=== PATIENT | male | born 2000 | race Caucasian/White ===

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

== ENCOUNTER 2019-03-10 12:35 | Emergency (ER) | payer SELFPAY ==
[~2019-03-10] VITALS: Ht 177.8 cm; Wt 70.0 kg
[~2019-03-10 12:35] MED LIST changes: +PRILOSEC20 MG/CAP PO; +PROTONIX40 MG PO; +REGLAN10 MG PO
[2019-03-10] MEDS ORDERED: FLEXERIL PO (13:27)
[2019-03-10] MEDS ORDERED: ULTRAM50 M1 PO (13:27)
[2019-03-10 13:41] VITALS: BP 149/92
== END 2019-03-10 13:49 | disposition home or self-care (01) | DRG 563 ==
LOC: ED 12:35
DX: S39.011A Strain of muscle, fascia and tendon of abdomen, initial encounter (principal); X50.0XXA Overexertion from strenuous movement or load, initial encounter

== ENCOUNTER 2019-04-24 08:07 | Observation (INO) | payer SELFPAY ==
[~2019-04-24] VITALS: Ht 177.8 cm; Wt 70.5 kg
[~2019-04-24 08:07] MED LIST changes: +FLEXERIL PO
--- NOTE | 2019-04-24 08:12 | NUR ---
PATIENT AMBULATES TO ROOM ROOM WITH STEADY GAIT.
[2019-04-24 08:33] LABS: HEMOGLOBIN 16.3 g/dl (14.0-18.0); IMMATURE GRANULOCYTES 0.4 % (0.0-5.0); MEAN CELL VOLUME 90.1 fL CALC (80.0-100.0); MEAN CORPUSCULAR HGB 30.6 pG CALC (26.0-32.0); NEUT# 13.05 thou/uL (1.82-7.42); RED BLOOD COUNT 5.33 mill/uL (4.70-6.10); RED CELL DISTRI WIDTH 11.9 % (11.5-15.5)
[2019-04-24 08:51] LABS: ALBUMIN 5.3 g/dL (3.2-5.0); ALKALINE PHOSPHATASE 68 u/l (38-126); ANION GAP 16 (6-22 (CALC)); BILIRUBIN, TOTAL 0.8 mg/dL (0.0-1.4); BUN 10 mg/dL (8-21); BUN/CREATININE RATIO 11 (12-20 (CALC)); CARBON DIOXIDE 24 mmol/l (22-30); CHLORIDE 106 mmol/l (95-108); CREATININE 0.9 mg/dL (0.7-1.3); ETHYL ALCOHOL 0 mg/dl (0-30); GFR > 60 ML/MIN (>=60 (CALC)); GFR FOR AFR.AMER. > 60 ML/MIN (>=60 (CALC)); LIPASE 81 u/l (23-300); POTASSIUM 3.9 mmol/l (3.5-5.1); SODIUM 143 mmol/l (137-146); TOTAL PROTEIN 8.1 g/dL (6.3-8.2)
[2019-04-24 08:52] LABS: SGOT/AST 23 u/l (17-59)
--- NOTE | 2019-04-24 09:08 | NUR ---
PT TO RADIOLOGY VIA . TRANSFERS SELF. IV SITE HEALTHY. PT APPEARS COMFORTABLE.
--- NOTE | 2019-04-24 09:23 | NUR ---
PT RETURNED FROM RADIOLOGY NO APPARENT DISTRESS. IV FLUIDS CONTINUE. VSS.
[2019-04-24 09:30] LABS: URINE BILIRUBIN - DIPSTICK NEGATIVE (NEGATIVE); URINE BLOOD DIPSTICK NEGATIVE (NEGATIVE); URINE COLOR YELLOW; URINE GLUCOSE - DIPSTICK NEGATIVE (NEGATIVE); URINE KETONE NEGATIVE (NEGATIVE); URINE LEUK ESTERASE NEGATIVE (NEGATIVE); URINE NITRITE - DIPSTICK NEGATIVE (Negative); URINE PROTEIN - DIPSTICK NEGATIVE (NEG-TRACE); URINE UROBILINOGEN - DIPSTICK 0.2 E.U./dL (0.2)
[2019-04-24 09:31] LABS: COCAINE NEGATIVE (NEGATIVE)
[2019-04-24 09:32] LABS: BARBITURATES NEGATIVE (NEGATIVE); METHADONE NEGATIVE (NEGATIVE); OXCYCODONE NEGATIVE (NEGATIVE); TETRAHYDROCANNABIONOL POSITIVE (NEGATIVE); TRICYLIC ANTIDEPRESSANTS NEGATIVE (NEGATIVE)
--- NOTE | 2019-04-24 10:30 | NUR ---
PT AWARE OF PENDING SURGICAL PROCEDURE FOR ACUTE APPENDICITIS. VOICES UNDERSTANDING.
--- NOTE | 2019-04-24 10:34 | NUR ---
NURSE INSTALLATION AND REPAIR TECHNICIAN AT BEDSIDE TO DISCUSS ANESTHESIOLOGY W/PT
--- NOTE | 2019-04-24 10:49 | NUR ---
PT TO OR AT THIS TIME, FAMILY ACCOMPANYING.
--- NOTE | 2019-04-24 10:57 | NUR ---
REPORT CALLED TO [facility].
[2019-04-24] MEDS ORDERED: PERCOCET 5/325M1 TAB PO (13:05)
[2019-04-24] MEDS ORDERED: TORADOL PO (13:05)
[2019-04-24 14:07] VITALS: BP 125/67
== END 2019-04-24 14:00 | disposition home or self-care (01) | DRG 343 ==
LOC: ED 08:07 → ED-I 10:00 → ED 10:13 → MS2 10:14
PROVIDERS: Family Medicine; ADMIT Surgery; ATTEND Surgery
PROC: 0DTJ4ZZ Resection of Appendix, Percutaneous Endoscopic Approach (ICD-10-PCS; principal; 2019-04-24)
DX: K35.30 Acute appendicitis with localized peritonitis, without perforation or gangrene (principal)
CPT/HCPCS: J0131; J2710; Q9967

== ENCOUNTER 2019-04-26 06:58 | Emergency (ER) | payer SELFPAY ==
[~2019-04-26] VITALS: Ht 177.8 cm; Wt 70.5 kg
[~2019-04-26 06:58] MED LIST changes: +PERCOCET 5/325M1 TAB PO; +TORADOL PO
[2019-04-26 07:52] LABS: HEMATOCRIT 44.7 % (39.0-50.0); HEMOGLOBIN 15.2 g/dl (14.0-18.0); IMMATURE GRANULOCYTES 0.3 % (0.0-5.0); MEAN CORPUSCULAR HGB 30.3 pG CALC (26.0-32.0); NEUT# 4.59 thou/uL (1.82-7.42); RED BLOOD COUNT 5.02 mill/uL (4.70-6.10); RED CELL DISTRI WIDTH 11.9 % (11.5-15.5)
[2019-04-26 08:15] LABS: ALBUMIN 4.6 g/dL (3.2-5.0); ALKALINE PHOSPHATASE 57 u/l (38-126); ANION GAP 13 (6-22 (CALC)); BILIRUBIN, TOTAL 0.9 mg/dL (0.0-1.4); BUN 10 mg/dL (8-21); BUN/CREATININE RATIO 10 (12-20 (CALC)); CARBON DIOXIDE 26 mmol/l (22-30); CHLORIDE 105 mmol/l (95-108); GFR > 60 ML/MIN (>=60 (CALC)); GFR FOR AFR.AMER. > 60 ML/MIN (>=60 (CALC)); POTASSIUM 3.9 mmol/l (3.5-5.1); SGOT/AST 20 u/l (17-59); SODIUM 141 mmol/l (137-146); TOTAL PROTEIN 7.1 g/dL (6.3-8.2)
[2019-04-26] MEDS ORDERED: ZOFRAN ODT8 MG PO (08:23)
[2019-04-26 08:44] VITALS: BP 138/72
== END 2019-04-26 08:44 | disposition home or self-care (01) | DRG 920 ==
LOC: ED 06:58
PROVIDERS: Family Medicine
DX: K91.840 Postprocedural hemorrhage of a digestive system organ or structure following a digestive system procedure (principal); K91.89 Other postprocedural complications and disorders of digestive system; R11.0 Nausea; R10.33 Periumbilical pain; R07.89 Other chest pain

== ENCOUNTER 2019-09-18 17:04 | Emergency (ER) | payer SELFPAY ==
[~2019-09-18] VITALS: Ht 177.8 cm; Wt 81.0 kg
[~2019-09-18 17:04] MED LIST changes: +ZOFRAN ODT8 MG PO
[2019-09-18] MEDS ORDERED: PEPCID20 MG PO (17:18)
[2019-09-18 18:30] VITALS: BP 112/76
[2019-09-19] MEDS ORDERED: ONDANSETRON4 MG PO (10:33)
[2019-09-19] MEDS ORDERED: MIRALAX3350 N1 PO (12:02)
[2019-09-19] MEDS ORDERED: PHENERGAN25 MG/TAB PO (12:10)
== END 2019-09-18 18:30 | disposition home or self-care (01) | DRG 392 ==
LOC: ED 17:04
DX: K21.9 Gastro-esophageal reflux disease without esophagitis (principal); R11.2 Nausea with vomiting, unspecified; Z79.899 Other long term (current) drug therapy

== ENCOUNTER 2019-09-19 10:15 | Emergency (ER) | payer SELFPAY ==
[~2019-09-19] VITALS: Ht 177.8 cm; Wt 75.0 kg
[~2019-09-19 10:15] MED LIST changes: +PEPCID20 MG PO
[2019-09-19] MEDS ORDERED: ONDANSETRON4 MG PO (10:33)
[2019-09-19 10:58] LABS: HEMOGLOBIN 15.7 g/dl (14.0-18.0); IMMATURE GRANULOCYTES 0.4 % (0.0-5.0); MEAN CELL VOLUME 88.7 fL CALC (80.0-100.0); MEAN CORPUSCULAR HGB 29.6 pG CALC (26.0-32.0); MEAN CORPUSCULAR HGB CONC 33.4 g/L CALC (32.0-36.0); NEUT# 6.02 thou/uL (1.82-7.42); RED BLOOD COUNT 5.3 mill/uL (4.70-6.10); RED CELL DISTRI WIDTH 12.2 % (11.5-15.5)
[2019-09-19 11:13] LABS: ALBUMIN 5.1 g/dL (3.2-5.0); ALKALINE PHOSPHATASE 71 u/l (38-126); ANION GAP 15 (6-22 (CALC)); BILIRUBIN, TOTAL 1.2 mg/dL (0.0-1.4); BUN 10 mg/dL (9-20); BUN/CREATININE RATIO 10 (12-20 (CALC)); CARBON DIOXIDE 25 mmol/l (22-30); CHLORIDE 104 mmol/l (95-108); GFR > 60 ML/MIN (>=60 (CALC)); GFR FOR AFR.AMER. > 60 ML/MIN (>=60 (CALC)); LIPASE 71 u/l (23-300); POTASSIUM 4.5 mmol/l (3.5-5.1); SGOT/AST 23 u/l (17-59); SODIUM 140 mmol/l (137-146); TOTAL PROTEIN 8.2 g/dL (6.3-8.2)
[2019-09-19 11:55] LABS: URINE BILIRUBIN - DIPSTICK NEGATIVE (NEGATIVE); URINE BLOOD DIPSTICK NEGATIVE (NEGATIVE); URINE COLOR YELLOW; URINE GLUCOSE - DIPSTICK NEGATIVE (NEGATIVE); URINE KETONE 15 mg/dL (NEGATIVE); URINE LEUK ESTERASE NEGATIVE (NEGATIVE); URINE NITRITE - DIPSTICK NEGATIVE (Negative); URINE PROTEIN - DIPSTICK NEGATIVE (NEG-TRACE); URINE UROBILINOGEN - DIPSTICK 0.2 E.U./dL (0.2)
[2019-09-19] MEDS ORDERED: MIRALAX3350 N1 PO (12:02)
[2019-09-19] MEDS ORDERED: PHENERGAN25 MG/TAB PO (12:10)
[2019-09-19 12:25] VITALS: BP 137/69
== END 2019-09-19 12:25 | disposition home or self-care (01) | DRG 392 ==
LOC: ED 10:15
PROVIDERS: Family Medicine
DX: K52.9 Noninfective gastroenteritis and colitis, unspecified (principal); K29.70 Gastritis, unspecified, without bleeding; R11.2 Nausea with vomiting, unspecified; R10.33 Periumbilical pain; R19.7 Diarrhea, unspecified

== ENCOUNTER 2020-04-18 12:06 | Emergency (ER) | payer SELFPAY ==
[~2020-04-18 12:06] MED LIST changes: +MIRALAX3350 N1 PO
[2020-04-18 12:37] VITALS: BP 122/77
== END 2020-04-18 12:37 | disposition home or self-care (01) | DRG 605 ==
LOC: ED 12:06
PROC: 0HQFXZZ Repair Right Hand Skin, External Approach (ICD-10-PCS; principal; 2020-04-18)
DX: S61.212A Laceration without foreign body of right middle finger without damage to nail, initial encounter (principal); X58.XXXA Exposure to other specified factors, initial encounter; Y92.89 Other specified places as the place of occurrence of the external cause; Y99.0 Civilian activity done for income or pay

== ENCOUNTER 2021-07-18 20:37 | Emergency (ER) | payer SELFPAY | END 2021-07-18 22:42 | disposition left against medical advice (07) | DRG 951 | LOC: ED 20:37 → LWOBS 22:40 | DX: Z53.21 Procedure and treatment not carried out due to patient leaving prior to being seen by health care provider (principal) ==

== ENCOUNTER 2021-07-25 17:10 | Emergency (ER) | payer SELFPAY ==
[~2021-07-25] VITALS: Ht 177.8 cm; Wt 85.0 kg
[2021-07-25] MEDS ORDERED: AMOXICILLIN500 MG PO (20:59)
[2021-07-25 21:35] VITALS: BP 132/89
== END 2021-07-25 21:35 | disposition home or self-care (01) | DRG 153 ==
LOC: ED 17:10
DX: J01.90 Acute sinusitis, unspecified (principal); J45.909 Unspecified asthma, uncomplicated; K21.9 Gastro-esophageal reflux disease without esophagitis; Z86.16 Personal history of COVID-19; Z20.822 Contact with and (suspected) exposure to COVID-19

== ENCOUNTER 2022-04-23 18:34 | Emergency (ER) | payer SELFPAY ==
[~2022-04-23] VITALS: Ht 177.8 cm; Wt 81.8 kg
[2022-04-23 19:22] VITALS: BP 143/91
[2022-04-23 21:16] LABS: HEMATOCRIT 46.5 % (39.0-50.0); HEMOGLOBIN 15.1 g/dl (14.0-18.0); IMMATURE GRANULOCYTES 0.2 % (0.0-5.0); MEAN CELL VOLUME 93.6 fL CALC (80.0-100.0); MEAN CORPUSCULAR HGB 30.4 pG CALC (26.0-32.0); MEAN CORPUSCULAR HGB CONC 32.5 g/dL CAL (32.0-36.0); NEUT# 11.99 thou/uL (1.82-7.42); RED BLOOD COUNT 4.97 mill/uL (4.70-6.10); RED CELL DISTRI WIDTH 12.4 % (11.5-15.5)
[2022-04-23 21:23] LABS: URINE BILIRUBIN - DIPSTICK NEGATIVE (NEGATIVE); URINE BLOOD DIPSTICK NEGATIVE (NEGATIVE); URINE COLOR YELLOW; URINE GLUCOSE - DIPSTICK NEGATIVE (NEGATIVE); URINE KETONE NEGATIVE (NEGATIVE); URINE LEUK ESTERASE NEGATIVE (NEGATIVE); URINE PROTEIN - DIPSTICK NEGATIVE (NEG-TRACE); URINE SPECIFIC GRAVITY 1.015; URINE UROBILINOGEN - DIPSTICK 0.2 E.U./dL (0.2)
[2022-04-23 21:28] LABS: URINE NITRITE - DIPSTICK NEGATIVE (Negative)
[2022-04-23 21:32] LABS: ALBUMIN 4.6 g/dL (3.2-5.0); ALKALINE PHOSPHATASE 67 u/l (38-126); AMYLASE 94 u/l (30-110); ANION GAP 14 (6-22 (CALC)); BUN 8 mg/dL (9-20); BUN/CREATININE RATIO 9 (12-20 (CALC)); CARBON DIOXIDE 26 mmol/l (22-30); CHLORIDE 104 mmol/l (95-108); CREATININE 0.9 mg/dL (0.7-1.3); GFR FOR AFR.AMER. > 60 ML/MIN (>=60 (CALC)); GFR OTHER RACES > 60 ML/MIN (>=60 (CALC)); SGOT/AST 24 u/l (17-59); SODIUM 140 mmol/l (137-146); TOTAL PROTEIN 7.6 g/dL (6.3-8.2)
[2022-04-23 21:38] LABS: BILIRUBIN, TOTAL 0.7 mg/dL (0.0-1.4)
[2022-04-23 22:10] VITALS: BP 143/91
[2022-04-23] MEDS ORDERED: BACTRIM DS1 TAB PO (22:17)
[2022-04-23] MEDS ORDERED: ONDANSETRON4 MG PO (22:17)
== END 2022-04-23 22:30 | disposition home or self-care (01) | DRG 392 ==
LOC: ED 18:34
PROVIDERS: Emergency Medicine
DX: K52.9 Noninfective gastroenteritis and colitis, unspecified (principal); J45.909 Unspecified asthma, uncomplicated; K21.9 Gastro-esophageal reflux disease without esophagitis; Z20.822 Contact with and (suspected) exposure to COVID-19

== ENCOUNTER 2023-02-20 07:59 | Emergency (ER) | payer SELFPAY ==
[~2023-02-20] VITALS: Ht 177.8 cm; Wt 60.2 kg
[~2023-02-20 07:59] MED LIST changes: +BACTRIM DS1 TAB PO
[2023-02-20] MEDS ORDERED: LISINOPRIL10 MG PO (08:08)
[2023-02-20] MEDS ORDERED: ALL DAY10 MG PO (08:11)
[2023-02-20] MEDS ORDERED: CEPHALEXIN500 M1 PO (08:11)
[2023-02-20] MEDS ORDERED: EPIPEN 2-P0.3 MG/0.3 IM (08:24)
[2023-02-20 08:39] VITALS: BP 144/88
== END 2023-02-20 08:45 | disposition home or self-care (01) | DRG 916 ==
LOC: ED 07:59
DX: T78.40XA Allergy, unspecified, initial encounter (principal); T63.441A Toxic effect of venom of bees, accidental (unintentional), initial encounter; K21.9 Gastro-esophageal reflux disease without esophagitis; Y92.9 Unspecified place or not applicable

== ENCOUNTER 2023-11-14 11:39 | Emergency (ER) | payer SELFPAY ==
[2023-11-14] VITALS (9 sets, daily range): BP systolic 123–149; BP diastolic 89–104
[~2023-11-14] VITALS: Ht 177.8 cm; Wt 81.6 kg
[~2023-11-14 11:39] MED LIST changes: +ALL DAY10 MG PO; +CEPHALEXIN500 M1 PO; +EPIPEN 2-P0.3 MG/0.3 IM; +LISINOPRIL10 MG PO
[2023-11-14 12:10] LABS: BASO% 0.4 % (0-3); EOS% 3.6 % (0-8); HEMATOCRIT 48.3 % (39.0-50.0); HEMOGLOBIN 16.2 g/dl (14.0-18.0); IMMATURE GRANULOCYTES 0.2 % (0.0-5.0); MEAN CORPUSCULAR HGB 30.9 pG CALC (26.0-32.0); MEAN CORPUSCULAR HGB CONC 33.5 g/dL CAL (32.0-36.0); MONO% 6.9 % (2-13); NEUT# 8.66 thou/uL (1.82-7.42); NEUT% 65.9 % (42-76); RED BLOOD COUNT 5.25 mill/uL (4.70-6.10); RED CELL DISTRI WIDTH 11.9 % (11.5-15.5)
[2023-11-14 12:33] LABS: ALBUMIN 5.1 g/dL (3.2-5.0); ALKALINE PHOSPHATASE 77 u/l (38-126); ANION GAP 17 (6-22 (CALC)); BUN 6 mg/dL (9-20); BUN/CREATININE RATIO 6 (12-20 (CALC)); CARBON DIOXIDE 23 mmol/l (22-30); CHLORIDE 104 mmol/l (95-108); GFR FOR AFR.AMER. > 60 ML/MIN (>=60 (CALC)); GFR OTHER RACES > 60 ML/MIN (>=60 (CALC)); POTASSIUM 3.6 mmol/l (3.5-5.1); SODIUM 141 mmol/l (137-146); TOTAL PROTEIN 8.5 g/dL (6.3-8.2)
[2023-11-14 12:35] LABS: SGOT/AST 47 u/l (17-59)
== END 2023-11-14 14:49 | disposition home or self-care (01) | DRG 897 ==
LOC: ED 11:39
PROVIDERS: Emergency Medicine
DX: F14.988 Cocaine use, unspecified with other cocaine-induced disorder (principal); R07.9 Chest pain, unspecified; I10 Essential (primary) hypertension; J45.909 Unspecified asthma, uncomplicated; K21.9 Gastro-esophageal reflux disease without esophagitis